=== PATIENT | female | born 1970 | race Caucasian/White ===

== ENCOUNTER 2016-12-30 20:03 | Emergency (ER) | payer OTHER ==
[~2016-12-30] VITALS: Ht 167.6 cm; Wt 109.0 kg
[~2016-12-30 20:03] MED LIST: ATOR20TA65 PO; CITA20TA11 PO; FOLI1TAB18 PO; GABA-500 PO; GEMF600T3 PO; HYDR-3740 PO; INSU100I SUBQ; INSU100I13 SUBQ; OMEP20CA11 PO; OXYB5TAB PO; SAXA5TAB PO; SILV400C TRANSDERM
[2016-12-30 20:11] VITALS: BP 120/86; PULSE 95; RESP 16; O2SAT 95
--- NOTE | 2016-12-30 21:11 | ED.REPORT ---
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 She states that the top of her finger is numb. The patient reports that she was cutting vegetables at home when she accidentally sliced her finger. She cleaned the wound with hydrogen peroxide and controlled the bleeding with gauze. Nursing Notes Stated Complaint: LAC TO RIGHT RING FINGER Chief Complaint: Extremity Trauma Nursing Notes Reviewed: Yes Allergies: Coded Allergies: codeine (Verified Allergy, Intermediate, GI upset, 12/30/16) Scheduled Atorvastatin Calcium (Atorvastatin Calcium) 20 Mg Tablet 20 MG PO HS Citalopram (Citalopram) 20 Mg Tablet 20 MG PO DAILY Folic Acid (Folic Acid) 1 Mg Tablet 1 MG PO MORNING Gabapentin (Gabapentin) 100 Mg Capsule 100 MG PO BID Gemfibrozil (Gemfibrozil) 600 Mg Tablet 600 MG PO BIDAC Insulin Aspart (NovoLOG U-100 Pen) 100 Unit/Ml Insuln.pen 1-8 UNITS SUBQ TIDWM Dosing per sliding scale Insulin Glargine (Lantus U100 Solostar Insulin Pen) 100 Unit/1 Ml Insuln.pen 60 UNIT SUBQ BID Omeprazole (Omeprazole) 20 Mg Capsule.dr 20 MG PO BID Oxybutynin Chloride ER (Oxybutynin Chloride ER) 5 Mg Tab.er.24 5 MG PO MORNING Saxagliptin (Onglyza) 5 Mg Tablet 5 MG PO DAILY Scheduled PRN Hydrocodone-Acetaminophen 10-325 mg (Hydrocodone-Acetaminophen 10-325 mg) 1 Each Tablet 1 TABLET PO Q4H PRN PRN For Pain Silver Sulfadiazine (Silver Sulfadiazine) 400 Gm Cream..g. 1 APPLIC TRANSDERM BID PRN PRN Wound on head General Time Seen by Provider: 21:20 Chief Complaint Finger injury right Hx Obtained From: Patient Arrived By: Walk-in Onset Occurred: Just prior to arrival Symptom Duration: Since onset Caused by: Knife wound Severity: Current: Moderate Associated with: Reports: Numbness Recent Healthcare: No recent doctor visit, No recent hospitalization Similar Sx Previous: No Past Medical History Past Medical History Dyslipidemia Sleep apnea Diabetes mellitus, Type II Central retinal vein occlusion Urge incontinence Renal insufficiency GERD Insomnia Hypertension Sarcoidosis Bipolar affective disorder Smoking History Former Smoker Social History Other Social History: Good social support Ambulatory Status Independent Review of Systems Musculoskeletal: Reports: Extremity pain (right ring finger) Neurologic: Reports: Numbness Complete sys rev & neg: except as marked. Physical Exam Initial Vital Signs Vital Signs (First) Date Time Temp Pulse Resp B/P Pulse Ox O2 Delivery O2 Flow Rate FiO2 12/30/16 20:11 36.2 95 16 120/86 95 Room Air Initial VS: Reviewed, Vital signs normal HAND: curved linear laceration of finger pad on the right ring finger deep into the subcutaneous but does not involve any underlying structures General/Constitutional: Awake, Alert, No acute distress Skin: Color NL, No rash, Warm, Dry Neurologic: Oriented X3, Speech NL, No motor deficits, No sensory deficits Head / Eyes: Normocephalic, PERRL, EOMI open wound covered with dressing on the top of skull Upper Extremity / MS: Atraumatic, Full range of motion Lower Extremity / Pelvis / MS: Atraumatic, Full range of motion Psychiatric: Affect NL, Mood NL Procedures Laceration Management Time: 22:09 Procedure Performed by: ED physician Consent / Setup / Site Prep: Consent from patient, Time-out performed, Hand hygiene observed, Stand sterile technique Wound Length: 2 cm Local Anesthesia: Bupivacaine 0.5%, Other (LET) Digit Involved: Ring finger right Wound Preparation: Betadine Debridement: Yes Irrigation: Copious Foreign Body Explore / Removal: Explored for foreign body Undermining / Margins: Wound margins revised (fat debridement), Flaps aligned Repair Skin: Nylon # Sutures - Skin: 6 Suture Technique: Simple Post-Procedure / Complications: Antibiotic oint applied, Dressing applied, No complications, Condition improved, Tolerated procedure well, Patient stable Re-Eval/Medical Decision Med Decision/Clinical Course Uncomplicated laceration of the tuft of her finger with a somewhat complex repair with flap alignment and some debridement of fatty tissue. Re-Evaluation/Progress : Time of Eval: 22:08 Re-Evaluation/Progress Note: Discussed plan for sutures and then discharge. The patient understands and agrees to the plan. All questions were addressed. Counseled Regarding: Diagnosis, Lab results, Need for follow-up, When/why to return to ED Discharge & Departure Primary Impression: Laceration Disposition: Home Discharge Condition All VS Reviewed: Yes Condition: Stable Patient Instructions: Care For Your Stitches (ED), Finger Laceration (ED) Additional Instructions: Keep it clean and dry. Okay to wash after 24 hours but do not soak it, for example no dishwashing, no hot tubbing, and no scuba diving. Follow-up if there are any signs of infection. Contact me at [phone] between the hours of 9 PM and 6 AM for the next few nights if you have any questions or concerns. Tylenol and/or ibuprofen as needed for pain. Sutures out in 10 days. Referrals: [facility] (PCP) Minor Attestation Portions of this note were transcribed by Serena Carpenter. I, Dr. Garcia personally performed the history, physical exam and medical decision-making; I reviewed and confirmed the accuracy of the information in the transcribed note. Signed by: Minor Jackson, 12/30/16 and 2130. copies to: [facility] Howard L MD Dec 30, 2016 21:11 Zunilda Carpenter Dec 30, 2016 21:22
[2016-12-30] MEDS ORDERED: Lidocaine-Epi-Tetracaine Solution 3 mL Syringe TOPICAL ONE (21:15)
[2016-12-30 22:50] VITALS: PULSE 89; RESP 18; O2SAT 95
[2017-01-12] MEDS ORDERED: LACT1CAP13 PO (11:09)
== END 2016-12-30 22:51 | disposition home or self-care (01) ==
LOC: SED 20:03
DX: S61.214A Laceration without foreign body of right ring finger without damage to nail, initial encounter (principal); W26.0XXA Contact with knife, initial encounter; Y93.G9 Activity, other involving cooking and grilling; Y92.009 Unspecified place in unspecified non-institutional (private) residence as the place of occurrence of the external cause; Y99.8 Other external cause status; I10 Essential (primary) hypertension; E11.9 Type 2 diabetes mellitus without complications; K21.9 Gastro-esophageal reflux disease without esophagitis; F31.9 Bipolar disorder, unspecified; E78.5 Hyperlipidemia, unspecified; Z79.4 Long term (current) use of insulin; Z87.891 Personal history of nicotine dependence; Z88.5 Allergy status to narcotic agent

== ENCOUNTER 2017-01-06 18:07 | Inpatient (IN) | payer OTHER, MEDICAID ==
[~2017-01-06] VITALS: Ht 167.6 cm; Wt 109.4 kg
[2017-01-06 18:12] VITALS: BP 116/85; PULSE 112; RESP 21; O2SAT 96
[2017-01-06] MEDS ORDERED: 0.9% Sodium Chloride 1,000 ML IV ONE ×2 (18:31→20:10)
--- NOTE | 2017-01-06 18:31 | ED.REPORT ---
HPI-Abd Pain F 40 and Over Date of Service Jan 06, 2017 ED Provider: Kuldip Peraza DO Pt is a 46 year old female with a history of pancreatitis, DM and HTN who presents to the ED complaining of abdominal pain onset this morning. She c/o associated weakness, nausea, vomiting, and diarrhea. She reports that these are usual symptoms when she has pancreatitis. She denies drinking alcohol and high cholesterol. Nursing Notes Stated Complaint: POSS PANCREATITIS Chief Complaint: Female Abdominal Pain Nursing Notes Reviewed: Yes Allergies: Coded Allergies: codeine (Verified Allergy, Intermediate, GI upset, 01/06/17) Scheduled Aspirin (Aspirin) 81 Mg Tablet 81 MG PO QAM Atorvastatin Calcium (Atorvastatin Calcium) 20 Mg Tablet 20 MG PO HS Citalopram (Citalopram) 20 Mg Tablet 20 MG PO DAILY Folic Acid (Folic Acid) 1 Mg Tablet 1 MG PO MORNING Gabapentin (Gabapentin) 100 Mg Capsule 100 MG PO BID Gemfibrozil (Gemfibrozil) 600 Mg Tablet 600 MG PO BIDAC Insulin Glargine,Hum.rec.anlog (Toportia Solroshanar) 300 Unit/Ml (1.5 Ml) Insuln.pen 60 UNITS SUBQ BID Omeprazole (Omeprazole) 20 Mg Capsule.dr 20 MG PO DAILY Oxybutynin Chloride ER (Oxybutynin Chloride ER) 5 Mg Tab.er.24 5 MG PO MORNING Saxagliptin (Onglyza) 5 Mg Tablet 5 MG PO DAILY Scheduled PRN Hydrocodone-Acetaminophen 10-325 mg (Hydrocodone-Acetaminophen 10-325 mg) 1 Each Tablet 1 TABLET PO Q4H PRN PRN For Pain Silver Sulfadiazine (Silver Sulfadiazine) 400 Gm Cream..g. 1 APPLIC TRANSDERM BID PRN PRN Wound on head General Time Seen by MD: 18:31 Chief Complaint Abdominal pain Hx Obtained From: Patient Arrived By: Walk-in Sudden in Onset?: No Onset Occurred: 5 - 8 hours ago Symptom Duration: Since onset Location: : Diffuse Quality: Painful Severity: Current: Moderate Severity: Maximum: Moderate Recent Healthcare: Recent doctor visit, Recent hospitalization Similar Sx Previous: Yes Past Medical History Past Medical History Dyslipidemia Sleep apnea Diabetes mellitus, Type II Central retinal vein occlusion Urge incontinence Renal insufficiency GERD Insomnia Hypertension Sarcoidosis Bipolar affective disorder Past Surgical History Reports: Appendectomy, Cholecystectomy Smoking History Former Smoker Social History Other Social History: Good social support Ambulatory Status Independent Review of Systems Constitutional: Reports: Weakness - generalized, Denies: Fever GI: Reports: Abdominal pain, Diarrhea, Nausea, Vomiting Complete sys rev & neg: except as marked. Physical Exam Vital Signs Vital Signs (First) Date Time Temp Pulse Resp B/P Pulse Ox O2 Delivery O2 Flow Rate FiO2 01/06/17 18:12 36.5 112 21 116/85 96 Room Air Initial VS: Reviewed Head / Eyes: Atraumatic, Normocephalic, PERRL ENT: Mucous membranes moist, Conjunctiva normal, No scleral icterus Neck: Supple, Non-tender, Full range of motion Extremities: Vascular intact, Neuro intact Skin: Warm, Dry, No cyanosis Neurologic: Alert, Oriented, Nonfocal Psychiatric: Mood/affect normal, Behavior normal General/Constitutional: Awake, Alert Distress / Hydration: Positive: Distress mild Respiratory / Chest: Atraumatic, Breath sounds NL, Breath sounds = bilat, No respiratory distress Cardiovascular: Heart rate NL, Regular rhythm, Heart sounds NL Abdomen: Atraumatic, Soft, Non-tender Back: Atraumatic, Full range of motion Wrist / Hand: Neurologic intact, Vascular intact Her wound on her fingers look like it is getting infected. Interpretation & Diagnostics Lab Results Interpretation Result Diagram: 01/06/17 1900 01/06/17 190 Test 01/06/17 19:00 White Blood Count 8.1th/mm3 (3.8-10.1) Red Blood Count 5.01mil/mm3 (3.90-5.20) Hemoglobin 13.4g/dL (12.0-15.6) Hematocrit 40.7% (35.0-46.0) Mean Corpuscular Volume 81.2fL (81-100) Mean Corpuscular Hemoglobin 26.7pg (27.0-35.0) Mean Corpuscular Hemoglobin Concent 32.9% (32.0-37.0) Red Cell Distribution Width 13.9% (12.3-15.4) Platelet Count 266bil/L (150-400) Neutrophils (%) (Auto) 77.4% (40-74) Lymphocytes (%) (Auto) 12.7% (14-46) Monocytes (%) (Auto) 6.5% (4-12) Eosinophils (%) (Auto) 2.8% (0-5) Basophils (%) (Auto) 0.2% (0-3) Sodium Level 137mEq/L (134-144) Potassium Level 4.3mEq/L (3.5-5.2) Chloride Level 98mEq/L (97-108) Carbon Dioxide Level 19mmol/L (18-29) Blood Urea Nitrogen 53mg/dL (6-24) Creatinine 2.34mg/dL (0.57-1.00) Estimat Glomerular Filtration Rate 32mL/min (>59) Glucose Level 176mg/dL (60-99) Lactic Acid Level 1.3mmol/L (0.4-2.0) Calcium Level 11.4mg/dL (8.5-10.1) Magnesium Level 1.8mg/dL (1.6-2.6) Total Bilirubin 0.3mg/dL (0.0-1.2) Aspartate Amino Transf (AST/SGOT) 18U/L (0-50) Alanine Aminotransferase (ALT/SGPT) 11U/L (0-32) Alkaline Phosphatase 169U/L (25-150) Total Protein 8.7g/dL (6.4-8.4) Albumin 3.8g/dL (3.4-5.0) Lipase 1007U/L (13-60) General Lab Results Interp 1: Labs reviewed, CMP normal except (elevated BUN/ creatinine and glucose), CBC normal ECG Interpretation ECG Interpretation: Sinus rhythm with a rate of 93. RBBB and LAFB. Unchanged from prior on 06/14/16. Time: 18:48 Interpreted by: ED physician Re-Eval/Medical Decision Med Decision/Clinical Course This is an acutely ill-appearing 46-year-old female who was pancreatitis, gastroenteritis, acute renal insufficiency secondary to dehydration and a finger infection. She is going be treated with fluids. Pain control. IV Unasyn for the finger infection because it was a bite. When she is tolerating oral I recommend Augmentin. Case discussed with our hospitalist was accepted her for admission. Source of Hx: Old records Re-Evaluation/Progress : Time of Eval: 20:07 )( Re-Eval Abdomen: Soft Re-Evaluation/Progress Note: Pt rechecked. Informed pt of plan for admission. Pt understands and agrees with plan for admission. All questions addressed. 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: Will see patient, Agrees with eval, Agrees with plan, Accepts admit Counseled Regarding: Diagnosis, Lab results, Need for admission Discharge & Departure Primary Impression: Acute pancreatitis Pancreatitis type: unspecified pancreatitis type Acute pancreatitis complication: unspecified Qualified Code: K85.90 - Acute pancreatitis without necrosis or infection, unspecified Additional Impressions: Acute renal insufficiency Dehydration Nausea vomiting and diarrhea Animal bite of right hand with infection Encounter type: initial encounter Qualified Code: S61.451A - Open bite of right hand, initial encounter Disposition: ADMITTED TO HOSPITAL Discharge Condition All VS Reviewed: Yes Condition: Stable Patient Instructions: Pancreatitis (ED) Referrals: [facility] (PCP) Maria Libfrancis Attestation Portions of this note were transcribed by Ruba Hill. I, Dr. Peraza personally performed the history, physical exam and medical decision-making; I reviewed and confirmed the accuracy of the information in the transcribed note. Signed by: Minor Avery, 01/06/17 and 19:50. copies to: [facility] Todd P DO Jan 06, 2017 18:31 Ruba Buckner Jan 06, 2017 18:50
[2017-01-06] MEDS ORDERED: 0.9% Sodium Chloride 1,000 ML IV SCH (18:45)
[2017-01-06] MEDS ORDERED: Ondansetron 2 mg/mL 2 mL Inj IVPUSH PRN ×2 (18:50→21:05)
[2017-01-06 19:12] LABS: BASOPHILS % (AUTO) 0.2 % (0-3); EOSINOPHILS % (AUTO) 2.8 % (0-5); MONOCYTES % (AUTO) 6.5 % (4-12); Mean Corpuscular Hemoglobin 26.7 pg (27.0-35.0); Mean Corpuscular Volume 81.2 fL (81-100); NEUTROPHILS % (AUTO) 77.4 % (40-74); Platelet Count 266 bil/L (150-400)
[2017-01-06 19:36] LABS: Magnesium 1.8 mg/dL (1.6-2.6)
[2017-01-06] MEDS: HYDROmorphone 0.5 mg/0.5 mL iSecure Syringe IVPUSH PRN ×2 (19:40→20:44)
[2017-01-06] MEDS ORDERED: Ampicillin-Sulbactam Inj 3,000 MG in 0.9% Sodium Chloride 100 ML IV ONE (20:10)
[2017-01-06] MEDS ORDERED: OMEP20CA11 PO (20:51)
[2017-01-06] MEDS ORDERED: ASPI-973 PO (20:51)
[2017-01-06] MEDS ORDERED: INSU300I SUBQ (20:51)
[2017-01-06 20:52] VITALS: BP 110/57; PULSE 108; RESP 19; O2SAT 96
[2017-01-06] MEDS ORDERED: Alum-Mag Hydrox-Simeth 30 mL Suspension PO PRN (21:05)
[2017-01-06 21:37] VITALS: BP 146/91; PULSE 83; RESP 18; O2SAT 95
[2017-01-06 22:40] LABS: APPEARANCE,URINE HAZY (CLEAR,HAZY); COLOR,URINE STRAW (YELLOW); OCCULT BLOOD,URINE SMALL (NEGATIVE); UROBILINOGEN,URINE NORMAL (NORMAL)
[2017-01-06] MEDS: Pantoprazole 4 mg/mL 10 mL Inj IVPUSH SCH (23:24)
[2017-01-07] VITALS (7 sets, daily range): BP systolic 112–145; BP diastolic 73–83; PULSE 82–107; RESP 16–18; O2SAT 91–97
--- NOTE | 2017-01-07 00:30 | PCM.HPMED ---
Subjective Date of Service Jan 07, 2017 Primary Provider: Admitting Physician: Hardik Mejia MD Primary Care Physician: [facility] Attending Physician: Hardik Mejia MD Admit Status: From the Emergency Department Chief Complaint: Abdominal pain with nausea and vomiting and diarrhea History of Present Illness: Patient is a 46-year-old female with past medical history remarkable for recurrent pancreatitis post cholecystectomy and without history of alcohol use, sarcoidosis, and MRSA scalp infection and necrotizing fasciitis abdominal infection who presents with 1 day of abdominal pain with nausea vomiting and diarrhea. The patient states that today when she woke up she was feeling fairly poor overall including some abdominal discomfort which progressed throughout the day. The patient describes initial onset of back pain described as lower right sided which feels as though somebody is stabbing her and eventually began radiating into her abdomen on the upper right side which feels as though someone is grabbing her pancreas. The patient states she began vomiting in the afternoon a yellow throat without blood or coffee ground emesis. The patient also developed diarrhea which is described as floating on water and a normal brown color. The patient denies any recent antibiotic use before today. The patient states that her current abdominal complaints remind her of previous episodes of pancreatitis. The patient had her gallbladder removed in 2013 believing that may be the cause of her pancreatitis however she has had several bouts since that time. The patient has sarcoidosis and avoids increased calcium ingestion. The patient states that she is unaware of a cause for her recurrent pancreatitis including being unaware it has ever been blamed on elevated calcium, elevated triglycerides, medications, or autoimmune. The patient denies starting any new medications recently. Review of Systems: A comprehensive review of systems was completed and all are negative except for as included in the history of present illness. Allergies Coded Allergies: codeine (Verified Allergy, Intermediate, GI upset, 01/06/17) Home Medications Aspirin 81 MG PO QAM Atorvastatin [id number] MG PO HS [id number] MG PO DAILY Folic Acid 1 MG PO MORNING Gabapentin 100 MG PO BID Gemfibrozil 600 MG PO BIDAC Insulin Glargine,Hum.rec.anlog 60 UNITS SUBQ BID Omeprazole 20 MG PO DAILY Oxybutynin Chloride ER 5 MG PO MORNING Saxagliptin 5 MG PO DAILY Hydrocodone-Acetaminophen 10-325 mg 1 TABLET PO Q4H PRN For Pain Silver Sulfadiazine 1 APPLIC TRANSDERM BID PRN Wound on head Lantus 60 units twice a day NovoLog sliding scale Atorvastatin 20 mg daily Zolpidem 10 mg at bedtime Hydrocodone/acetaminophen 10/325 tablets prn Gemfibrozil 600 mg tablets citalopram 20 mg daily gabapentin 100mg unknown frequency omeperazole 20 mg by mouth daily Ditropan 5mg XR daily glimepiride 2mg daily folic acid 1mg by mouth daily saxagliptin 5mg po daily PMH Dyslipidemia Sleep apnea Diabetes mellitus, Type II Central retinal vein occlusion in 2013 without complication Urge incontinence Renal insufficiency 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 GERD Insomnia Hypertension Sarcoidosis Recurrent pancreatitis post cholecystectomy without history of alcohol use Bipolar affective disorder History of MRSA History of necrotizing fasciitis Surgical History Cholecystectomy in 2013 Appendectomy Tubal ligation Debridement of skalp sarcoid Require surgical intervention for necrotizing fasciitis Family History mother alive at 66 years old and has HTN, diabetes and heart disease the patient has not spoken to her in 20 years and does not know her current health The patient's father from leukemia in his 70s The patient is an only child Social History 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 Hx Alcohol Use: No Hx Substance Use: No Hx Tobacco Use: Yes Smoking Status: Former Smoker Living Arrangement: with Family Exam Vital Signs Vital Sign - Last Date Time Temp Pulse Resp B/P Pulse Ox O2 Delivery O2 Flow Rate FiO2 01/06/17 21:37 37.1 83 18 146/91 95 Room Air Intake and Output 01/06/17 01/06/17 01/07/17 Cumulative From/Thru 15:00 23:00 07:00 01/06/17 18:12 - 01/06/17 21:37 Intake Total 3000 ml 3000 ml Balance 3000 ml 3000 ml Intake IV Total 3000 ml 3000 ml Exam Gen.: Middle-aged morbidly obese female lying in bed currently in no acute distress, alert and cooperative Eyes: Pupils equal round and reactive to light, extraocular motion intact, anicteric sclera, noninjected conjunctiva HENT: Patient has a scalp wound without fluctuance or serosanguineous drainage at this time, moist mucous membranes without central cyanosis, oropharynx clear without cobblestoning mucous Neck: Supple, without tracheal deviation, no JVD noted Cardiovascular: Regular rate and rhythm, without murmurs rubs or gallops Lungs: Clear to auscultation bilaterally without wheezing rales or rhonchi Abdomen: Tenderness to palpation noted in right upper quadrant and epigastrium, nondistended, hypoactive bowel sounds, tympanic to percussion without Adhikari Sena sign on flanks Extremities: Without cyanosis, edema, clubbing, pulses intact bilaterally at radial and dorsalis pedis, patient has a 2 cm laceration with purulent wound effusion on her right ring finger which is neurovascularly intact : No Rico in place Neuro: Nonfocal, patient is able to move all extremities spontaneously Psych: Normal mood and affect Lab and Diagnostics Result Diagram: 01/06/17189901/06/171899 Assessment & Plan Patient is a 46-year-old female with past medical history remarkable for recurrent pancreatitis post cholecystectomy and without history of alcohol use, sarcoidosis, and MRSA scalp infection and necrotizing fasciitis abdominal infection who presents with 1 day of abdominal pain with nausea vomiting and diarrhea. # Acute pancreatitis - The patient has a lipase of 1007 - Differential diagnosis for recurrent pancreatitis includes biliary tract stones even without a gallbladder, hypercalcemia, hypertriglyceridemia, undocumented alcohol use, trauma, scorpion stings, autoimmune IGG4 related as well as numerous drugs - The patient denies any trauma or scorpion sting, alcohol use, no new drugs, the patient's triglycerides are elevated but only to 282 making this an unlikely cause, and the patient had her gallbladder removed in 2013 making stone less likely - The patient has sarcoidosis causing chronic elevated calcium currently at 11.4 and likely the cause of recurrent pancreatitis at this time - Day team may consider imaging studies as 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, the patient also has an elevated alkaline phosphatase at 169 making biliary stones unlikely but still possible - Patient is made nothing by mouth and will have her diet advanced as tolerated - Fentanyl IV available for pain coverage and the patient appeared comfortable at assessment - Pantoprazole IV given patient is nothing by mouth - Ondansetron IV when necessary as patient is nothing by mouth - Initial BISAP score of 2 gives a fairly favorable prognosis, and given infection in hand and possible UTI consider this course was a possible 1 as vital signs may be affected by concomitant unrelated infection # Infected dog bite on left upper extremity fourth digit - Finger has a definite purulent effusion one week post dog bite - Patient had minor I&D performed in emergency department - Patient started on Unasyn IV given patient is nothing by mouth - Wound care consult ordered - Patient will likely need antibiotic coverage for 7-14 days # Hypercalcemia - Reportedly secondary to chronic sarcoidosis - PTH and vitamin D ordered - Day team may consider initiation of Calcitonin, bisphosphonates, or loop diuretics to decrease serum calcium depending on results of PTH/Vit D # Likely urinary tract infection - Patient denied symptoms of urinary tract infection - UA indicates patient has elevated white blood cell count, moderate bacteria, leukocyte esterase and nitrites - Unasyn for concomitant dog bite infection will cover any UTI # Acute kidney injury - Creatinine of 2.3 for significantly elevated from baseline in the low ones - Likely due to prerenal azotemia given nausea and vomiting as well BUN to creatinine ratio greater than 20 - Patient was given significant fluid resuscitation in the emergency department with 3 L normal saline - Repeat BMP - Monitor # Diabetes mellitus type II Insulin-dependent - Hemoglobin A1c ordered - Patient is currently nothing by mouth given acute pancreatitis - Correction scale lispro until patient's diet is advanced # Obesity - Patient education prior to discharge DVT prophylaxis: Heparin 5000 units 3 times a day GI prophylaxis: Pantoprazole IV twice a day CODE STATUS full Patient is admitted to inpatient status given presenting symptoms, likely diagnosis, possible complications, and required treatments expected length of stay is greater than 2 midnights. Pain Evaluation: Adequate Pain Control GI Prophylaxis: Proton Pump Inhibitor VTE Prophylaxis Indicated: Meets Criteria for Anticoag Therapy VTE Prophylaxis: Sub-Q Heparin (Unfractionated) Resuscitation Status: CPR: Attempt Resuscitation Attending Statement The patient was seen and examined together with Dr. Quinteros on 01/06 and I agree with the history, exam and plan as outlined in the note above. Edgar Chowdary DO Jan 07, 2017 00:30 Hardik Mejia MD Jan 07, 2017 05:54
[2017-01-07] MEDS: fentaNYL-PF 50 mCg/mL 2 mL Inj IV PRN ×6 (01:26→23:30)
[2017-01-07] MEDS: Ondansetron 2 mg/mL 2 mL Inj IVPUSH PRN ×6 (01:26→22:08)
--- NOTE | 2017-01-07 03:24 | NUR ---
ADMIT NOTE Pt arrived to [id number] approx 2130. Pt alert and oriented. VS obtained. Pt placed on remote telemetry, patient monitor notified. Pt had rec'd 3 liters NS IVF in ER, no further IVF orders at this time per admitting resident, okay to have TKO IVF d/t pts difficult to start IVs. Pt has not had any diarrhea upon arrival to floor, orders from ER for stool sample. Pt placed on contact enteric to R/O C.diff. Pt also has hx of MRSA, on contact precautions. Pt has wound on anterior head and dog bite to right ring finger. Admitting resident states that he will order wound consult. Pt comfortable, no pain at time of arrival to [facility]. Continue to monitor. Call light in reach. Daughter in room overnight. Intentional rounding.
[2017-01-07] MEDS ORDERED: Glucose 40% Oral Gel 15 Gm Tube PO PRN (04:25)
[2017-01-07] MEDS ORDERED: Dextrose 10% 250 ML IV PRN (04:35)
[2017-01-07] MEDS: Ampicillin-Sulbactam Inj 1,500 MG in 0.9% Sodium Chloride 50 ML IV SCH ×3 (05:50→18:30)
--- NOTE | 2017-01-07 06:09 | NUR ---
OUTPUT Pt has been voiding good amts. Pt has had episodes of green, bile emesis, approx total 150cc. No BM since arrival to floor. Continue to monitor.
[2017-01-07 06:18] LABS: BASOPHILS % (AUTO) 0.1 % (0-3); EOSINOPHILS % (AUTO) 2.1 % (0-5); MONOCYTES % (AUTO) 9.4 % (4-12); Mean Corpuscular Hemoglobin 26.9 pg (27.0-35.0); Mean Corpuscular Volume 82.6 fL (81-100); NEUTROPHILS % (AUTO) 73.7 % (40-74); Platelet Count 256 bil/L (150-400)
[2017-01-07] MEDS: Insulin LISPRO 300 Unit/3 mL Inj SUBQ SCH ×4 (08:00→22:00)
[2017-01-07] MEDS: Pantoprazole 4 mg/mL 10 mL Inj IVPUSH SCH ×2 (08:30→16:42)
--- NOTE | 2017-01-07 09:00 | NUR ---
head wound pt refuse to left this RN assess head wound and stated that she did not want tell this RN how it occurred.
--- NOTE | 2017-01-07 09:14 | PCM.PNMED ---
Subjective Date of Service Jan 07, 2017 Subjective Pt feeling a little bit better this morning. still nauseated, denies appetite but has not vomting this morning No fever or chills. Still feeling weak. Exam Vital Signs Vital Sign - Last Date Time Temp Pulse Resp B/P Pulse Ox O2 Delivery O2 Flow Rate FiO2 01/07/17 05:55 82 01/07/17 05:40 36.7 16 145/76 97 Room Air Intake and Output 01/06/17 01/06/17 01/07/17 Cumulative From/Thru 15:00 23:00 07:00 01/06/17 18:12 - 01/07/17 05:53 Intake Total 3000 ml 161 ml 3161 ml Output Total 150 ml 150 ml Balance 3000 ml 11 ml 3011 ml Intake IV Total 3000 ml 161 ml 3161 ml Output Urine Total 100 ml 100 ml Emesis 50 ml 50 ml # Bowel Movements 0 0 General: Alert, Oriented X3, Cooperative, Mild Distress Eyes: PERRLA Mouth: Mucous Membranes Dry Cardiovascular: Regular Rate/Rhythm Abdomen: Non-tender, Non-distended, Other (Obese) Extremities: No cyanosis/clubbing/edma bilat Skin: Other (INfectioned laceration of finger secondary to dog bite. Erythematous distal to DIP, without streaking. (+)bandage on head, pt declines evalaution, states it is chronic. ) Neurological: Grossly Neurologically Intact IVs and Medications Medications Reviewed: Medications were reviewed in detail Lab and Diagnostics Result Diagram: 01/07/17 0545 01/07/17 0545 Assessment & Plan Patient is a 46-year-old female with past medical history remarkable for recurrent pancreatitis post cholecystectomy and without history of alcohol use, sarcoidosis, and MRSA scalp infection and necrotizing fasciitis abdominal infection who presents with 1 day of abdominal pain with nausea vomiting and diarrhea. # Acute pancreatitis - The patient has a lipase of 1007 - Differential diagnosis for recurrent pancreatitis includes biliary tract stones even without a gallbladder, hypercalcemia, hypertriglyceridemia, undocumented alcohol use, trauma, scorpion stings, autoimmune IGG4 related as well as numerous drugs - The patient denies any trauma or scorpion sting, alcohol use, no new drugs, the patient's triglycerides are elevated but only to 282 making this an unlikely cause, and the patient had her gallbladder removed in 2013 making stone less likely - The patient has sarcoidosis causing chronic elevated calcium currently at 11.4 and likely the cause of recurrent pancreatitis at this time - Day team may consider imaging studies as 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 - Patient was made nothing by mouth and will have her diet advanced as tolerated , now ordering clears but pt will only eat if able. - Fentanyl IV available for pain coverage and the patient appeared comfortable at assessment - Pantoprazole IV given patient is nothing by mouth - Ondansetron IV when necessary as patient is nothing by mouth - Continue to advance diet as tolerated. # Infected dog bite on left upper extremity fourth digit - Finger has a definite purulent effusion one week post dog bite - Patient had minor I&D performed in emergency department - Patient started on Unasyn IV given patient is nothing by mouth - Wound care consult ordered - Patient will likely need antibiotic coverage for 7-14 days, plan to transition to oral antibiotic when tolerating. # Hypercalcemia - Reportedly secondary to chronic sarcoidosis - PTH and vitamin D ordered - Day team may consider initiation of Calcitonin, bisphosphonates, or loop diuretics to decrease serum calcium depending on results of PTH/Vit D # Likely urinary tract infection - Patient denied symptoms of urinary tract infection - UA indicates patient has elevated white blood cell count, moderate bacteria, leukocyte esterase and nitrites - Unasyn for concomitant dog bite infection will cover any UTI # Acute kidney injury - Creatinine of 2.3 for significantly elevated from baseline in the low ones - Likely due to prerenal azotemia given nausea and vomiting as well BUN to creatinine ratio greater than 20 - Patient was given significant fluid resuscitation in the emergency department with 3 L normal saline - Repeat BMP - Monitor # Diabetes mellitus type II Insulin-dependent - Hemoglobin A1c ordered - Patient is currently nothing by mouth given acute pancreatitis - Correction scale lispro until patient's diet is advanced # Obesity - Patient education prior to discharge Patient is admitted to inpatient status given presenting symptoms, likely diagnosis, possible complications, and required treatments expected length of stay is greater than 2 midnights. Pain Evaluation: Adequate Pain Control GI Prophylaxis: Proton Pump Inhibitor VTE Prophylaxis: Sub-Q Heparin (Unfractionated) Resuscitation Status: CPR: Attempt Resuscitation Time spent 25 minutes Esau Elmore DO Jan 07, 2017 09:14
[2017-01-07] MEDS: 0.9% Sodium Chloride 1,000 ML IV SCH ×2 (12:08→18:33)
--- NOTE | 2017-01-07 12:28 | NUR ---
Social Work: Screening D: EMR reviewed. Pt is a 46 y/o female admitted for acute pancreatitis and renal failure per H&P. Per MD in AM multi-disciplinary rounds, pt is moving from IVABX to POABX. Pt is also being seen by wound care for a dog bite. Pt's insurance is [employer] and PCP is [facility]. Pt's NOK is [facility] Dwayne Omar ([phone]). Per MD, pt is likely to discharge tomorrow and doesn't anticipate any SW needs at this time. SW does not anticipate any discharge needs at this time but will continue to follow if needs arise. A: Per MD, pt does not have any anticipated SW discharge needs at this time. P: Pt likely to discharge home via POV tomorrow. MANJU Doe
--- NOTE | 2017-01-07 14:19 | NUR ---
nausea/vomiting/abd pain Pt reported nausea multiple times during shift and vomited X3 equaling 250ml of green bile-like emisis. Administered Zofran 4mg x2 and 8mg X2 which pt stated relieved nausea for a few hours. Pt reported 9/10 sharp abd pain that was relived to a 5/10 by 25mcg of fentanyl q3h
--- NOTE | 2017-01-07 15:57 | NUR ---
Wound Note 46 yo female reports dog bite approx 1 week ago at her right 4th finger. Assessment reveals an avulsion type laceration on the volar surface of the finger measuring 1.5 cm in length x 3.5 cm in width and a depth of 0.6 cms, there is necrotic tissue at the radial border of the wound otherwise wound bed is fibrinous yellow slough, minimal serous drainage, erythema is limited to the tip of the finger and the distal finger is swollen. Patient has active flexion of the ring finger and with isolation flexion of distal phalanx is normal. Patient has gross sensation at the finger but I suspect diabetic neuropathy is at play. Wound is cleaned with saline and hydrogel was placed on wound bed to encourage autolytic debridement covered with a mepilex foam dressing. Patient also has a dressing on the top of her head but refuses to allow me to see it and refuses to discuss the etiology with me either. Recommend plastic surgery be consulted regarding finger wound.
[2017-01-07] MEDS ORDERED: Promethazine 25 mg/mL Inj IM PRN (18:55)
[2017-01-08] MEDS: Ampicillin-Sulbactam Inj 1,500 MG in 0.9% Sodium Chloride 50 ML IV SCH ×4 (00:44→18:43)
[2017-01-08 00:54] VITALS: BP 159/103; PULSE 107; RESP 20; O2SAT 95
[2017-01-08 04:45] VITALS: BP 140/92; PULSE 97; RESP 20; O2SAT 93
[2017-01-08] MEDS: 0.9% Sodium Chloride 1,000 ML IV SCH ×3 (05:35→18:45)
--- NOTE | 2017-01-08 06:06 | NUR ---
Unable to sleep Pt awake for most of night, resting on pull out couch. Pt requesting sleeping pill, paged. Medicated pt with 5 mg melatonin per MD orders. Pt resting in bed after medication admin. Call light within reach, frequent rounding.
[2017-01-08 06:30] LABS: BASOPHILS % (AUTO) 0.2 % (0-3); EOSINOPHILS % (AUTO) 1.2 % (0-5); MONOCYTES % (AUTO) 7.6 % (4-12); Mean Corpuscular Hemoglobin 27.2 pg (27.0-35.0); Mean Corpuscular Volume 82.3 fL (81-100); NEUTROPHILS % (AUTO) 73.8 % (40-74); Platelet Count 272 bil/L (150-400)
[2017-01-08] MEDS: Insulin LISPRO 300 Unit/3 mL Inj SUBQ SCH ×4 (08:00→21:32)
--- NOTE | 2017-01-08 08:15 | NUR ---
Nausea/retching Pt is complaining of increased nausea, retching with no emesis. Pt reports Zofran has not decreased the nausea as well Phenergan. notified, this RN requesting change from IM to IV for pt comfort. Pharmacy contacted for medication delivery. Will continue to monitor. Addendum: 01/08/17 at 1108 by ALICJA ARIZA RN Pt resting quietly, nausea decreased, no signs of retching at this time. Family at bedside resting with pt. Call light in reach, will continue to monitor.
[2017-01-08] MEDS: Pantoprazole 4 mg/mL 10 mL Inj IVPUSH SCH ×2 (08:19→16:57)
[2017-01-08] MEDS ORDERED: Promethazine 25 mg/mL Inj IV PRN (08:50)
[2017-01-08] MEDS: Promethazine Inj 25 MG in 0.9% Sodium Chloride 50 ML IV PRN (09:38)
[2017-01-08 10:02] VITALS: BP 148/99; PULSE 98; RESP 20; O2SAT 97
[2017-01-08 12:59] VITALS: BP 134/84; PULSE 88; RESP 20; O2SAT 95
[2017-01-08] MEDS: fentaNYL-PF 50 mCg/mL 2 mL Inj IV PRN ×3 (13:02→21:37)
--- NOTE | 2017-01-08 14:56 | PCM.PNMED ---
Subjective Date of Service Jan 08, 2017 Subjective Patient continues to be severely nauseated requiring multiple when necessary's control vomiting. Tolerating little by mouth. Experiencing significant abdominal upset. No acute changes over past 24 hours. Minimal pain of finger described. Exam Vital Signs Vital Sign - Last Date Time Temp Pulse Resp B/P Pulse Ox O2 Delivery O2 Flow Rate FiO2 01/08/17 12:59 36.8 88 20 134/84 95 Room Air Intake and Output 01/07/17 01/07/17 01/08/17 Cumulative From/Thru 15:00 23:00 07:00 01/06/17 18:12 - 01/08/17 06:01 Intake Total 1429 ml 1152 ml 5742 ml Output Total 1500 ml 1550 ml 5 ml 3205 ml Balance -1500 ml -121 ml 1147 ml 2537 ml Intake Oral 592 ml 0 ml 592 ml IV Total 837 ml 1152 ml 5150 ml Output Urine Total 1500 ml 1300 ml 5 ml 2905 ml Emesis 250 ml 300 ml # Bowel Movements 0 Exam General: Alert, Oriented X3, Cooperative, significant distress Eyes: PERRLA Mouth: Mucous Membranes Dry Cardiovascular: Regular Rate/Rhythm Abdomen: Non-tender, Non-distended, Obese Extremities: No cyanosis/clubbing/edema bilat Skin: Infectioned laceration of finger secondary to dog bite. Erythematous distal to DIP, without streaking. (+)bandage on head, pt declines evaluation, states it is chronic. Neurological: Grossly Neurologically Intact IVs and Medications Medications Reviewed: Medications were reviewed in detail Lab and Diagnostics Result Diagram: 01/08/17 0535 01/08/17 0535 Assessment & Plan Patient is a 46-year-old female with past medical history remarkable for recurrent pancreatitis post cholecystectomy and without history of alcohol use, sarcoidosis, and MRSA scalp infection and necrotizing fasciitis abdominal infection who presents with 1 day of abdominal pain with nausea vomiting and diarrhea. # Acute pancreatitis - The patient has a lipase of 1007 - Differential diagnosis for recurrent pancreatitis includes biliary tract stones even without a gallbladder, hypercalcemia, hypertriglyceridemia, undocumented alcohol use, trauma, scorpion stings, autoimmune IGG4 related as well as numerous drugs - The patient denies any trauma or scorpion sting, alcohol use, no new drugs, the patient's triglycerides are elevated but only to 282 making this an unlikely cause, and the patient had her gallbladder removed in 2013 making stone less likely - Patient was made nothing by mouth and will have her diet advanced as tolerated , now ordering clears but pt will only eat if able. - Fentanyl IV available for pain coverage and additional when necessary medications - Pantoprazole IV given patient is having difficult time tolerating by mouth. - Ondansetron IV, with Phenergan added given refractory nausea and vomiting - Continue to advance diet as tolerated. # Infected dog bite on left upper extremity fourth digit - Finger has a definite purulent effusion one week post dog bite - Patient had minor I&D performed in emergency department - Patient started on Unasyn IV , may consider narrowing spectrum as patient medically stabilizes, and transition to oral antibiotics 1-2 days. - Wound care consult ordered - Patient will likely need antibiotic coverage for 7-14 days, plan to transition to oral antibiotic when tolerating. # Hypercalcemia - Reportedly secondary to chronic sarcoidosis - PTH and vitamin D ordered; Low vit D noted - Start Vit D supplement, 4000U/daily when able to take PO. - Consider FU level in ~1 week to monitor progress. - Continue to trend calcium levels, now normalized.. # Likely urinary tract infection - Patient denied symptoms of urinary tract infection - UA indicates patient has elevated white blood cell count, moderate bacteria, leukocyte esterase and nitrites - Unasyn for concomitant dog bite infection will cover any UTI # Acute kidney injury - Creatinine of 2.3 for significantly elevated from baseline in the low ones, downward tredning with IVFs. - Likely due to prerenal azotemia given nausea and vomiting as well BUN to creatinine ratio greater than 20 - Patient was given significant fluid resuscitation in the emergency department with 3 L normal saline - Repeat BMP - Continue to Monitor # Diabetes mellitus type II Insulin-dependent - Hemoglobin A1c ordered, 8.5 supports poor control. - Patient is currently nothing by mouth given acute pancreatitis - Correction scale lispro until patient's diet is advanced, may consider long acting and basal agents at that time. # Obesity - Patient education prior to discharge Patient is admitted to inpatient status given presenting symptoms, likely diagnosis, possible complications, and required treatments expected length of stay is greater than 2 midnights. Pain Evaluation: Adequate Pain Control GI Prophylaxis: Proton Pump Inhibitor VTE Prophylaxis: Sub-Q Heparin (Unfractionated) Resuscitation Status: CPR: Attempt Resuscitation Time spent 30 minutes Esau Elmore DO Jan 08, 2017 14:56 Esau Elmore DO Jan 08, 2017 14:56
--- NOTE | 2017-01-08 16:00 | NUR ---
Wound Note Patient seen at bedside for wound care and dressing change at right ring finger, slightly less necrotic tissue in the wound, edges remain unapproximated. swelling and erythema seem less today at the ring finger tip, wound cleaned with saline and gauze, redressed with hydrogel and adhesive foam dressing, recommend nursing change dressing daily over the weekend, ws to recheck on Wednesday. Patient still adamantly refuses to let me visualize her scalp wound, bandage remains in place there. I see from record that plastic surgery has not been consulted on for this finger wound, it remains my recommendation.
[2017-01-08 17:57] VITALS: BP 139/86; PULSE 92; RESP 20; O2SAT 96
--- NOTE | 2017-01-08 18:49 | NUR ---
PO intake Pt was able to tolerate 120 mls of apple juice at dinner with no increased nausea or vomiting. Pt continues to reports slight abd discomfort however feels is at a tolerable level with 50 mcg of Fentanyl IV PRN. Pt encouraged to continue to advance diet as tolerated and contact staff for needs. Call light in reach, will continue to monitor.
[2017-01-08 20:22] VITALS: BP 152/96; PULSE 91; RESP 20; O2SAT 97
[2017-01-09 00:27] VITALS: BP 138/74; PULSE 100; RESP 20; O2SAT 96
[2017-01-09] MEDS: Ampicillin-Sulbactam Inj 1,500 MG in 0.9% Sodium Chloride 50 ML IV SCH ×4 (02:03→18:16)
[2017-01-09] MEDS: fentaNYL-PF 50 mCg/mL 2 mL Inj IV PRN ×6 (02:24→23:10)
[2017-01-09] MEDS: Promethazine Inj 25 MG in 0.9% Sodium Chloride 50 ML IV PRN (04:46)
[2017-01-09] MEDS: 0.9% Sodium Chloride 1,000 ML IV SCH ×2 (04:50→16:38)
[2017-01-09 05:11] LABS: BASOPHILS % (AUTO) 0.3 % (0-3); EOSINOPHILS % (AUTO) 2.5 % (0-5); MONOCYTES % (AUTO) 12.5 % (4-12); Mean Corpuscular Hemoglobin 26.8 pg (27.0-35.0); Mean Corpuscular Volume 79.4 fL (81-100); NEUTROPHILS % (AUTO) 62.8 % (40-74); Platelet Count 285 bil/L (150-400)
[2017-01-09 05:46] VITALS: BP 132/82; PULSE 90; RESP 18; O2SAT 95
[2017-01-09] MEDS ORDERED: KCl 40 mEq/D5W 500 mL 40 MEQ in IV Premix 1 EACH IV ONE (07:35)
[2017-01-09 08:57] VITALS: BP 140/86; PULSE 82; RESP 20; O2SAT 94
[2017-01-09] MEDS: Pantoprazole 40 mg ER24 Tablet PO SCH ×2 (09:28→16:37)
[2017-01-09] MEDS: Insulin LISPRO 300 Unit/3 mL Inj SUBQ SCH ×4 (09:39→22:11)
--- NOTE | 2017-01-09 11:51 | NUR ---
IV Potassium: Patient complaining of IV site hurting. IV Potassium infusing. Hot pack placed on IV site. Explained to patient that I can reduce rate of infusion, however it will take longer to infuse. Patient states she will wait to see if hot packs helps discomfort. On reassessment, patient states she would like IV potassium stopped now. States "I have low potassium every time I come to the hospital and they always give me a pill, never by IV." "Stop it now!". IV potassium stopped. notified of patient concerns @ approx 1150.
[2017-01-09] MEDS ORDERED: Potassium Chloride 20 mEq SR Tablet PO ONE (11:55)
--- NOTE | 2017-01-09 12:07 | PCM.PNMED ---
Subjective Date of Service Jan 09, 2017 Subjective She is seen today in follow-up for pancreatitis and the right flank pain. Her potassium overnight dropped to 3.3. CBC is normal and the BMP is otherwise normal. Blood sugar 219. I spoke with Dr. Moreno and we will proceed along the direction of his suggested workup. Exam Vital Signs Vital Sign - Last Date Time Temp Pulse Resp B/P Pulse Ox O2 Delivery O2 Flow Rate FiO2 01/09/17 08:57 36.3 82 20 140/86 94 Room Air Intake and Output 01/08/17 01/08/17 01/09/17 Cumulative From/Thru 15:00 23:00 07:00 01/06/17 18:12 - 01/09/17 06:36 Intake Total 400 ml 1465 ml 7607 ml Output Total 1850 ml 950 ml 6005 ml Balance -1450 ml 515 ml 1602 ml Intake Oral 400 ml 400 ml 1392 ml IV Total 1065 ml 6215 ml Output Urine Total 1850 ml 950 ml 5705 ml Emesis 300 ml # Bowel Movements 0 0 0 Exam Alert and oriented without apparent distress Heart is regular rate and rhythm without murmur lungs are clear to auscultation bilaterally Extremities have no ankle edema Neck exam is normal There is mild right flank tenderness. Abdomen is otherwise normal area and specifically there is no central abdominal tenderness or epigastric tenderness. IVs and Medications Medications Reviewed: Medications were reviewed in detail Lab and Diagnostics Result Diagram: 01/09/17 0440 01/09/17 0440 Assessment & Plan Patient is a 46-year-old female with past medical history remarkable for recurrent pancreatitis post cholecystectomy and without history of alcohol use, sarcoidosis, and MRSA scalp infection and necrotizing fasciitis abdominal infection who presented with 1 day of abdominal pain with nausea vomiting and diarrhea. # Acute pancreatitis - The patient had a lipase of 1007 on admission, which has subsequently dropped. - Differential diagnosis for recurrent pancreatitis includes biliary tract stones even without a gallbladder, hypercalcemia, hypertriglyceridemia, undocumented alcohol use, trauma, scorpion stings, autoimmune IGG4 related as well as numerous drugs - The patient denies any trauma or scorpion sting, alcohol use, no new drugs, the patient's triglycerides are elevated but only to 282 making this an unlikely cause, and the patient had her gallbladder removed in 2013 making stone less likely - Diet is being steadily advanced and she seems to be tolerating that. - Fentanyl IV available for pain coverage and additional when necessary medications - Pantoprazole IV given patient is having difficult time tolerating by mouth. - Ondansetron IV, with Phenergan added given refractory nausea and vomiting -The fact that her complaint today is only of right flank pain prompts a review of her potential pyelonephritis workup. The CT showed findings that were nonspecific for pyelonephritis but were nevertheless consistent with pyelonephritis. The urinalysis and urine culture were abnormal but there was no definitive single bacterial result on the urine culture. The white count has been normal and there has been no fever. She is on IV Unasyn.. The CT was quite definitive about the presence of pancreatitis. # Infected dog bite on left upper extremity fourth digit -Completing IV Unasyn treatment. - Patient will likely need antibiotic coverage for 7-14 days, plan to transition to oral antibiotic when tolerating. # Hypercalcemia - Reportedly secondary to chronic sarcoidosis - PTH and vitamin D ordered; Low vit D noted - Start Vit D supplement, 4000U/daily when able to take PO. - Consider FU level in ~1 week to monitor progress. - Continue to trend calcium levels, now normalized.. # Likely urinary tract infection/right pyelonephritis - Patient denied symptoms of urinary tract infection - UA indicates patient has elevated white blood cell count, moderate bacteria, leukocyte esterase and nitrites - Unasyn for concomitant dog bite infection will cover any UTI - Urine culture showing growth of more than 3 organisms # Acute kidney injury - Creatinine of 2.3 for significantly elevated from baseline in the low ones, now down to 1.57. - Likely due to prerenal azotemia given nausea and vomiting as well BUN to creatinine ratio greater than 20 - Patient was given significant fluid resuscitation in the emergency department with 3 L normal saline # Diabetes mellitus type II Insulin-dependent - Hemoglobin A1c ordered, 8.5 supports poor control. - Patient is currently resuming oral intake and insulin doses are being adjusted. - Correction scale lispro, may consider long acting and basal agents resumed soon. # Obesity - Patient education prior to discharge # Hypokalemia - Did not tolerate IV infusion. We will give additional oral potassium today. GI Prophylaxis: Proton Pump Inhibitor VTE Prophylaxis: Sub-Q Heparin (Unfractionated) Resuscitation Status: CPR: Attempt Resuscitation Oziel Dumont MD Jan 09, 2017 09:22
--- NOTE | 2017-01-09 13:29 | DRSVH ---
PROCEDURE: US RENAL SONOGRAM INDICATIONS: 46 year-old female with right flank pain. TECHNIQUE: Real-time scanning was performed of the kidneys and bladder, with image documentation. COMPARISON: [facility], CT, CT ABD PELVIS W CON, 06/14/2016, 10:48. FINDINGS: Kidneys: Kidneys are normal in size. Right kidney measures 9.8 cm long; left kidney measures 11 cm long. Right renal cortical thickness is 1.4 cm; left renal cortical thickness is 1.2 cm. Renal sherrell ical echotexture is normal. No hydronephrosis or nephrolithiasis. No suspicious solid mass lesions. Bladder: Pre-void bladder volume is 31 mL. Pre-void images demonstrate no intraluminal masses or st ones. On pre-void images, right and left ureteral jets are noted with color Doppler interrogation. Miscellaneous: No free pelvic fluid. IMPRESSION: No sonographic explanation for right flank pain. Dictated by: Alexandre Jean M.D. on 01/09/2017 at 13:24 Approved by: Alexandre Jean M.D. on 01/09/2017 at 13:27
--- NOTE | 2017-01-09 13:38 | NUR ---
NUTRITION ASSESSMENT: ASSESS:46 YO female admitted with acute on chronic pancreatitis, with right flank pain, infected dog bite on left upper fourth digit finger, hypercalcemia, likely uti / pyelonephritis, LEONID. Her lipase has subsequently dropped. Differential diagnosis for recurrent pancreatitis includes biliary tract stones even without a gallbladder, hypercalcemia, hypertriglyceridemia, undocumented alcohol use, trauma, scorpion stings, autoimmune IGG4 related as well as numerous drugs. Pt. remains NPO / clear liquids x 3 D. PMHx:Dyslipidemia, sleep apnea, type 2 diabetes, central retinal vein occlusion, urge incontinence, renal insufficiency GERD, insomnia, HTN, sarcoidosis, recurrent pancreatitis status post cholecystectomy, bipolar disorder, MRSA, necrotizing fasciitis. DIET:NPO / clear liquids x 3 D. LABS: Reviewed. K+ 3.3, BUN 36, Cr 1.57, Glu 229, A1c 8.5. MEDICATIONS: Reviewed. NUTRITION FOCUSED PHYSICAL ASSESSMENT: GI symptoms / stool: No BM reported.Bob: 19. Skin Integrity: Wound care and dressing change at right ring finger, slightly less necrotic tissue in the wound, edges remain unapproximated. Swelling and erythema seem less at the ring finger tip. Patient still adamantly refuses to allow Winding Rack Operator to visualize her scalp wound. Plastic surgery has not been consulted on for this finger wound, although it was recommended by Winding Rack Operator.. ANTHROPOMETRICS: Current Wt: 106.8 kgBMI: 38.0 kg/m2.Admit weight: 110.0 kg IBW: 59.1 kg (186.2% IBW). ESTIMATED NEEDS (CLASS II OBESITY, WOUNDS): Calories: 1477 - 1773 kcal (25 - 30 kcal / kg IBW) Protein: 106 - 118 g protein (1.8 - 2.0 g / kg IBW) NUTRITION DIAGNOSIS: 1)Increased nutrient needs related to wounds, as evidenced by request for plastic surgery consult by Winding Rack Operator. 2)Altered nutrition-related labs related to uncontrolled diabetes, as evidenced by A1c 8.5. INTERVENTION: 1) Will add supplements to trays. 2) Will offer diabetes education with referral to outpatient program. MONITOR/EVALUATE: Diet advance / tolerance, PO intake, labs, GI/nutrition status. Follow up per moderate nutrition risk guidelines.
[2017-01-09 13:59] VITALS: BP 133/82; PULSE 87; RESP 20; O2SAT 96
[2017-01-09 17:17] VITALS: BP 119/72; PULSE 84; RESP 20; O2SAT 98
[2017-01-10 00:23] VITALS: BP 148/90; PULSE 80; RESP 20; O2SAT 97
[2017-01-10] MEDS: Ampicillin-Sulbactam Inj 1,500 MG in 0.9% Sodium Chloride 50 ML IV SCH ×4 (01:06→18:29)
[2017-01-10 05:00] VITALS: BP 136/86; PULSE 90; RESP 20; O2SAT 98
[2017-01-10] MEDS: fentaNYL-PF 50 mCg/mL 2 mL Inj IV PRN (05:05)
[2017-01-10] MEDS: 0.9% Sodium Chloride 1,000 ML IV SCH ×3 (05:05→17:27)
--- NOTE | 2017-01-10 07:24 | NUR ---
NOC activity Pt reports of pain on her right side of the abdomen 02/25. Administered fentanyl PRN IV. Medication effective upon reassessment. Denies chest pain, sob, n.v. Encouraged po intake as tolerated. HS meds administered as scheduled. VSS and has been afebrile overnight.
[2017-01-10] MEDS: Insulin LISPRO 300 Unit/3 mL Inj SUBQ SCH ×4 (08:13→21:08)
[2017-01-10] MEDS: Pantoprazole 40 mg ER24 Tablet PO SCH ×2 (08:13→16:35)
[2017-01-10 10:37] VITALS: BP 148/88; PULSE 86; RESP 16; O2SAT 97
--- NOTE | 2017-01-10 12:26 | NUR ---
Pain: Patient complaining of abdominal pain 8/10 on pain scale. Pain medication changed to PO Dilaudid. Dilaudid administered. On reassessment, patient states pain has decreased "very little". Offered patient a choice of hot pack or heating pad. Patient opted for hot pack. Provided hot pack for abdomen. On reassessment, patient states heat is helping and pain is decreased to 6/10 on pain scale. Will continue to follow.
--- NOTE | 2017-01-10 14:15 | PCM.PNMED ---
Subjective Date of Service Jan 10, 2017 Subjective She is seen today to follow-up her pyelonephritis, pancreatitis, sarcoidosis skin lesion and the infected animal bite finger wound. She has been very secretive about a gauze dressing on the top of her head, not allowing anyone to look underneath it. When I initially asked her about it she declines to discuss it but with my insistence she states that many years ago she had a sarcoidosis outbreak that involved the entire top of her scalp and has slowly over the years shrunk to this current level. 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 She is not currently under any treatment with any particular unit reactor operator for that condition. Also looked at her finger. She explains that a dog bit this significant portion out of her right ring finger but that the swelling and the discharge/redness have improved considerably. Exam Vital Signs Vital Sign - Last Date Time Temp Pulse Resp B/P Pulse Ox O2 Delivery O2 Flow Rate FiO2 01/10/17 10:37 36.9 86 16 148/88 97 Room Air Intake and Output 01/09/17 01/09/17 01/10/17 Cumulative From/Thru 15:00 23:00 07:00 01/06/17 18:12 - 01/10/17 06:45 Intake Total 1941 ml 1885 ml 32901 ml Output Total 1800 ml 1000 ml 8805 ml Balance 141 ml 885 ml 2628 ml Intake Oral 750 ml 625 ml 2767 ml IV Total 1191 ml 1260 ml 8666 ml Output Urine Total 1800 ml 1000 ml 8505 ml Emesis 300 ml # Bowel Movements 2 2 Exam On exam she is lying in bed, internally preoccupied, giving the impression of being irritated at my interruption to her morning. Her daughter is sleeping in the other bed and appears to be somewhat passive about everything. Heart is regular rate and rhythm without murmur Lungs are clear to auscultation bilaterally Extremities have no ankle edema Abdomen is soft, bowel sounds positive, no organomegaly, mild right flank tenderness, no other tenderness. The right hand ring finger has a significant missing piece on the ventral aspect between the PIP and DIP joints. There is some granulation tissue and residual swelling of the finger but no discharge. On the vertex of her scalp is a 4 x 4 gauze covering an apparent chronic ulceration that she did not wish me to examine. IVs and Medications Medications Reviewed: Medications were reviewed in detail Lab and Diagnostics Result Diagram: 01/09/17 0440 01/10/17 0600 Assessment & Plan Patient is a 46-year-old female with past medical history remarkable for recurrent pancreatitis post cholecystectomy and without history of alcohol use, sarcoidosis, and MRSA scalp infection and necrotizing fasciitis abdominal infection who presented with 1 day of abdominal pain with nausea vomiting and diarrhea. # Acute pancreatitis - The patient had a lipase of 1007 on admission, which has subsequently dropped. - Differential diagnosis for recurrent pancreatitis includes biliary tract stones even without a gallbladder, hypercalcemia, hypertriglyceridemia, undocumented alcohol use, trauma, scorpion stings, autoimmune IGG4 related as well as numerous drugs - The patient denies any trauma or scorpion sting, alcohol use, no new drugs, the patient's triglycerides are elevated but only to 282 making this an unlikely cause, and the patient had her gallbladder removed in 2013 making stone less likely - Diet is being steadily advanced and she seems to be tolerating that. - We will be changing from IV fentanyl over to oral oxycodone for pain today. - Pantoprazole now by mouth - Ondansetron IV, with Phenergan added given refractory nausea and vomiting -The fact that her complaint today is only of right flank pain prompts a review of her potential pyelonephritis workup. The CT showed findings that were nonspecific for pyelonephritis but were nevertheless consistent with pyelonephritis. The urinalysis and urine culture were abnormal but there was no definitive single bacterial result on the urine culture. The white count has been normal and there has been no fever. She is on IV Unasyn.. The CT was quite definitive about the presence of pancreatitis. # Infected dog bite on left upper extremity fourth digit -Completing IV Unasyn treatment. - Patient will likely need antibiotic coverage for 7-14 days, plan to transition to oral antibiotic when tolerating. - We discussed potential plastic surgery referral, which may be more pertinent as the infection resolves leaving the actual residual defect more clearly delineated. This will be reevaluated before discharge. # Hypercalcemia - Reportedly secondary to chronic sarcoidosis - PTH and vitamin D ordered; Low vit D noted - Start Vit D supplement - Consider FU level in ~1 week to monitor progress. - Continue to trend calcium levels, now normalized.. # Likely urinary tract infection/right pyelonephritis - Patient denied symptoms of urinary tract infection - UA indicates patient has elevated white blood cell count, moderate bacteria, leukocyte esterase and nitrites - Unasyn for concomitant dog bite infection will cover any UTI - Urine culture showing growth of more than 3 organisms # Acute kidney injury - Creatinine of 2.3 for significantly elevated from baseline in the low ones, now down to 1.57. - Likely due to prerenal azotemia given nausea and vomiting as well BUN to creatinine ratio greater than 20 - Patient was given significant fluid resuscitation in the emergency department with 3 L normal saline # Diabetes mellitus type II Insulin-dependent - Hemoglobin A1c ordered, 8.5 supports poor control. - Patient is currently resuming oral intake and insulin doses are being adjusted. # Obesity - Patient education prior to discharge # Hypokalemia - Did not tolerate IV infusion. Level up to 3.6 after 40 mEq given yesterday. Recheck tomorrow. # Scalp sarcoidosis - This area needs to be reexamined and documented but the patient has not been allowing that. - Despite the apparent chronicity there is always a chance that occult skin neoplasm is present. GI Prophylaxis: Proton Pump Inhibitor VTE Prophylaxis: Sub-Q Heparin (Unfractionated) VTE Mechanical Devices: Intermittant Pneumatic CD Resuscitation Status: CPR: Attempt Resuscitation Oziel Dumont MD Jan 10, 2017 14:15
[2017-01-10 14:24] VITALS: BP 138/89; PULSE 84; RESP 16; O2SAT 95
[2017-01-10 18:26] VITALS: BP 150/79; PULSE 98; RESP 16; O2SAT 97
[2017-01-10 20:02] VITALS: BP 143/91; PULSE 92; RESP 16; O2SAT 99
[2017-01-10] MEDS: Insulin GLARgine 100 Unit/mL Syringe SUBQ SCH (21:07)
[2017-01-11] MEDS: 0.9% Sodium Chloride 1,000 ML IV SCH ×3 (00:15→16:20)
[2017-01-11] MEDS: Ampicillin-Sulbactam Inj 1,500 MG in 0.9% Sodium Chloride 50 ML IV SCH ×4 (00:20→18:12)
[2017-01-11 04:22] VITALS: BP 130/83; PULSE 92; RESP 16; O2SAT 95
--- NOTE | 2017-01-11 05:34 | NUR ---
Kpad Reduced Pain Shower at HS, IV and dressing on R hand kept dry and intact. Heat is very efficient at managing flank pain. 4x4 to scalp CDI, pt manages and cares for this with her daughters help. NS infusing at 100. No SOB, on RA. Care continues
[2017-01-11] MEDS: Pantoprazole 20 mg ER24 Tablet PO SCH (05:54)
[2017-01-11 06:52] LABS: Mean Corpuscular Hemoglobin 26.7 pg (27.0-35.0); Mean Corpuscular Volume 81.3 fL (81-100)
[2017-01-11] MEDS: Tolterodine ER 4 mg ER24 Capsule PO SCH (07:50)
[2017-01-11] MEDS: Pantoprazole 40 mg ER24 Tablet PO SCH (07:51)
[2017-01-11] MEDS: Insulin GLARgine 100 Unit/mL Syringe SUBQ SCH ×2 (07:51→21:59)
[2017-01-11] MEDS: Insulin LISPRO 300 Unit/3 mL Inj SUBQ SCH ×4 (07:52→22:00)
[2017-01-11] MEDS ORDERED: Polyethylene Glycol (PEG) 17 Gm Powder PO PRN (09:00)
[2017-01-11] MEDS ORDERED: Senna-Docusate 8.6-50 mg Tablet PO PRN (09:00)
--- NOTE | 2017-01-11 12:18 | NUR ---
Social Work-readiness for discharge: Data:EMR Reviewed. Pt is on day 5 of hospitalization for acute pancreatic per H&P. Pt is not medically stable anticipate tomorrow. Pt resides at home and has been up independent in her room. Pt to discharge on oral abx. No anticipated discharge needs. SW will continue to follow if needs arise. Assessment:Pt who is independent at baseline. Plan:Pt to discharge home when medically stable via POV. No anticipated discharge needs. SW will continue to follow if needs arise. MANJU Mckeon
[2017-01-11 14:13] VITALS: BP 135/86; PULSE 93; RESP 16; O2SAT 96
--- NOTE | 2017-01-11 16:35 | NUR ---
Wound Note patient sen at bedside for wound care and dressing change of right ring finger dog bite wound. Wound continues to clean up now 50% granulation tissue and 50% fibrin, erythema and swelling are resolved.Cleaned wound with saline and gauze, redressed with hydrogel and mepilex foam dressing. Offered outpatient follow up in the wound center but patient declines at this time, will call and schedule if she feels like healing at her finger is stalled.
--- NOTE | 2017-01-11 18:06 | NUR ---
Pain: Patient reporting abdominal pain level at a tolerable 3-4/10 on pain scale. Denies the need for pain medication. K-Pad used as needed to help reduce abdominal discomfort. Tolerating soft diet, denies nausea or increase in abdominal pain after meals.
[2017-01-11 20:43] VITALS: BP 127/82; PULSE 94; RESP 16; O2SAT 99
--- NOTE | 2017-01-11 22:29 | PCM.PNMED ---
Subjective Date of Service Jan 11, 2017 Subjective 46 F with sarcoidosis, acute on chronic pancreatitis. She is seen today to follow-up her pyelonephritis, pancreatitis, sarcoidosis skin lesion and the infected animal bite finger wound. Patient states that her nausea, appetite and pain have improved much. There are function has improved. She is ambulating in the hallways. Requesting something for constipation. She states that her right finger dog bite is actually much improved now she feels that his it is healing but good Exam Vital Signs Vital Sign - Last Date Time Temp Pulse Resp B/P Pulse Ox O2 Delivery O2 Flow Rate FiO2 01/11/17 04:22 36.8 92 16 130/83 95 Room Air Intake and Output 01/10/17 01/10/17 01/11/17 Cumulative From/Thru 15:00 23:00 07:00 01/06/17 18:12 - 01/10/17 18:46 Intake Total 720 ml 18951 ml Output Total 1000 ml 9805 ml Balance -280 ml 2348 ml Intake Oral 720 ml 3487 ml IV Total 8666 ml Output Urine Total 1000 ml 9505 ml Emesis 300 ml # Bowel Movements 0 2 Exam General: Alert, Oriented X3, Cooperative, Alopecia, Looks stated age Eyes: PERRLA, Scleral Anicteric Mouth: Mouth Normal, Mucous Membranes dry Neck: Supple, no Thyromegaly, trachea central. Chest & Lungs: Clear to auscultation & percussion, No adventitious breath sounds, no crackles, no wheeze Cardiovascular: Normal S1, Normal S2, No Murmurs/Rubs/Gallops, normalRhythm, No JVD, slightly tachycardic Abdomen: Soft, Non-tender, Non-distended, Normoactive bowel tones. Skin: Warm and dry, Scalp covered it with a large patch, patient does not seem to be in a very good mood and she has a history of not wanting to show the scalp skin for deferred exam, deep nonpruritic w/o bone exposure on the palmar side of the finger tip of the left hand fourth finger Neurological: Grossly neurologically intact, Normal Speech, Sensation Intact extremities trace swelling is present Lungs clear to auscultation no crackles or wheezes skin IVs and Medications IV Fluids None Medications Reviewed: Medications were reviewed in detail Lab and Diagnostics Laboratory Tests Test 01/11/17 06:09 White Blood Count 6.9th/mm3 (3.8-10.1) Red Blood Count 4.75mil/mm3 (3.90-5.20) Hemoglobin 12.7g/dL (12.0-15.6) Hematocrit 38.6% (35.0-46.0) Mean Corpuscular Volume 81.3fL (81-100) Mean Corpuscular Hemoglobin 26.7pg (27.0-35.0) Mean Corpuscular Hemoglobin Concent 32.9% (32.0-37.0) Red Cell Distribution Width 13.5% (12.3-15.4) Platelet Count 232bil/L (150-400) Sodium Level 139mEq/L (134-144) Potassium Level 3.4mEq/L (3.5-5.2) Chloride Level 102mEq/L (97-108) Carbon Dioxide Level 20mmol/L (18-29) Blood Urea Nitrogen 27mg/dL (6-24) Creatinine 1.43mg/dL (0.57-1.00) Estimat Glomerular Filtration Rate 56mL/min (>59) Glucose Level 207mg/dL (60-99) Calcium Level 8.8mg/dL (8.5-10.1) Total Bilirubin 0.3mg/dL (0.0-1.2) Aspartate Amino Transf (AST/SGOT) 18U/L (0-50) Alanine Aminotransferase (ALT/SGPT) 11U/L (0-32) Alkaline Phosphatase 120U/L (25-150) Total Protein 7.0g/dL (6.4-8.4) Albumin 3.2g/dL (3.4-5.0) Lipase 92U/L (13-60) Microbiology 01/06/17 Urine Culture - Final, Complete Bacterial Contamination Result Diagram: 01/09/17 0440 01/10/17 0600 Assessment & Plan Patient is a 46-year-old female with past medical history remarkable for recurrent pancreatitis post cholecystectomy and without history of alcohol use, sarcoidosis, and MRSA scalp infection and necrotizing fasciitis abdominal infection who presented with 1 day of abdominal pain with nausea vomiting and diarrhea. # Constipation,a cute active MiraLAX and Senokots are ordered # Acute on chronic pancreatitis, POA improving - The patient had a lipase of 1007 on admission, which has subsequently dropped. - Differential diagnosis for recurrent pancreatitis includes biliary tract stones even without a gallbladder, hypercalcemia, hypertriglyceridemia, undocumented alcohol use, trauma, scorpion stings, autoimmune IGG4 related as well as numerous drugs - The patient denies any trauma or scorpion sting, alcohol use, no new drugs, the patient's triglycerides are elevated but only to 282 making this an unlikely cause, and the patient had her gallbladder removed in 2013 making stone less likely - Diet is being steadily advanced and she seems to be tolerating that. - Pantoprazole now by mouth - Ondansetron IV, with Phenergan added given refractory nausea and vomiting -The fact that her complaint today is only of right flank pain prompts a review of her potential pyelonephritis workup. The CT showed findings that were nonspecific for pyelonephritis but were nevertheless consistent with pyelonephritis. The urinalysis and urine culture were abnormal but there was no definitive single bacterial result on the urine culture. The white count has been normal and there has been no fever. She is on IV Unasyn.. The CT was quite definitive about the presence of pancreatitis. --lipase is 92 much improved nausea vomiting improved on 01/11 --Discontinue Dilaudid and fentanyl for pain. Started her on morphine IV and vicodin PO # Infected dog bite on left upper extremity fourth digit, POAa ctive -Completing IV Unasyn treatment. - Patient will likely need antibiotic coverage for 7-14 days, plan to transition to oral antibiotic when tolerating. - We discussed potential plastic surgery referral, which may be more pertinent as the infection resolves leaving the actual residual defect more clearly delineated. This will be reevaluated before discharge. # Hypercalcemia POA active - Reportedly secondary to chronic sarcoidosis - PTH and vitamin D ordered; Low vit D noted - Start Vit D supplement - Consider FU level in ~1 week to monitor progress. - Continue to trend calcium levels, now normalized.. # Likely urinary tract infection/right pyelonephritis, POA active - Patient denied symptoms of urinary tract infection - UA indicates patient has elevated white blood cell count, moderate bacteria, leukocyte esterase and nitrites - Unasyn for concomitant dog bite infection will cover any UTI - Urine culture showing growth of more than 3 organisms # Acute kidney injury, POA resolved - Creatinine of 2.3 for significantly elevated from baseline in the low ones, now down to 1.57. - Likely due to prerenal azotemia given nausea and vomiting as well BUN to creatinine ratio greater than 20 - Patient was given significant fluid resuscitation in the emergency department with 3 L normal saline --At her baseline today 01/11 # Diabetes mellitus type II Insulin-dependent chronic active - Hemoglobin A1c ordered, 8.5 supports poor control. - Patient is currently resuming oral intake and insulin doses are being adjusted. -Added 3 units at mealtime insulin based on her requirements in the last 24 hours - # Obesity, chronic active - Patient education prior to discharge can be considered but patient's general behavior does not appear to be receptive to such suggestions. # Hypokalemia, acute resolved - Did not tolerate IV infusion. Level up to 3.6 after 40 mEq given -- Cont to monitor # Scalp sarcoidosis, chronic active - This area needs to be reexamined and documented but the patient has not been allowing that. - Despite the apparent chronicity there is always a chance that occult skin neoplasm is present. Pain Evaluation: Adequate Pain Control GI Prophylaxis: Proton Pump Inhibitor VTE Prophylaxis: Sub-Q Heparin (Unfractionated) VTE Mechanical Devices: Intermittant Pneumatic CD Resuscitation Status: CPR: Attempt Resuscitation Time spent 25 min Kate Wood DO Jan 11, 2017 05:28
[2017-01-12] MEDS: Ampicillin-Sulbactam Inj 1,500 MG in 0.9% Sodium Chloride 50 ML IV SCH ×2 (00:23→06:32)
--- NOTE | 2017-01-12 05:02 | NUR ---
Activity Pt alert and oriented x 3 denies n/v/d and abd pain. Kpad on abd. Pt showered independently this shift and no issues reported or observed. Steady on feet wearing non slip socks. VSS. Care continues.
[2017-01-12] MEDS ORDERED: INSLIS SUBQ (05:57)
[2017-01-12] MEDS ORDERED: INSU100V7 SUBQ (05:57)
[2017-01-12] MEDS: Pantoprazole 20 mg ER24 Tablet PO SCH (06:32)
[2017-01-12 06:38] VITALS: BP 106/74; PULSE 85; RESP 16; O2SAT 93
[2017-01-12] MEDS: Insulin LISPRO 300 Unit/3 mL Inj SUBQ SCH (08:09)
[2017-01-12] MEDS: Tolterodine ER 4 mg ER24 Capsule PO SCH (08:10)
[2017-01-12] MEDS: Insulin GLARgine 100 Unit/mL Syringe SUBQ SCH (08:11)
[2017-01-12] MEDS ORDERED: AMOX-366 PO (11:08)
[2017-01-12] MEDS ORDERED: LACT1CAP26 PO (11:09)
--- NOTE | 2017-01-12 11:50 | PCM.DIMED ---
Discharge Instructions Date of Service Jan 12, 2017 Dates of Hospitalization Jan 06, 2017 at 20:55 Discharge Diagnosis Discharge Diagnosis Acute on Chronic Pancreatitis, Sarcoidosis, Hypercalcemia, Vit D def, DM II, Dog Bite, Pyelonephritis Diet Discharge Diet: Heart Healthy, Diabetic Activity Discharge Activity: No restrictions Call your provider Call your provider for: Fever or Chills, Shortness of breath, Bleeding, Chest pain, Vomitting, Excessive diarrhea, Weakness (unilateral), Other Patient Instructions Patient Instructions Please keep the wound dry and clean. Please follow a low fat diabetic diet. Your insulin was decreased based on your usage here. Please discuss with PCP at f/u Please continue vit D supplementation Follow-up plan F./U with PCP in one week F/U with wound care in 3-4 days F/U with Dr. Figueroa as o/p if wound does not heel in the future in 2-3 weeks Kate Wood DO Jan 12, 2017 11:50
[2017-01-12] MEDS ORDERED: CHOL100043 PO (11:52)
--- NOTE | 2017-01-12 12:40 | NUR ---
Discharge Went over dc instructions and medications with pt and family who verbally acknowledged understanding. Removed IV. Pt left on ft with no s/s of distress.
--- NOTE | 2017-01-12 14:26 | NUR ---
Social Work-discharge: Data:EMR Reviewed. Pt is on day 6 of hospitalization for acute pancreatitis per H&P. Pt is medically stable for discharge. Pt resides at home and will return home on PO abx. No discharge needs identified. All updated and agreeable to plan. Assessment:pt who is independent at baseline. Plan:Pt to discharge home today via POV. No discharge needs identified. All updated and agreeable to plan. MANJU Mckeon
[2017-01-12] MEDS ORDERED: Amoxicillin-Clav 875-125 mg Tablet PO SCH (20:30)
== END 2017-01-12 12:40 | disposition home or self-care (01) | DRG 439 ==
LOC: SED 18:07 → MPC 20:55
PROVIDERS: ADMIT Family Medicine; ATTEND Hospitalist
PROC: 0HDGXZZ Extraction of Left Hand Skin, External Approach (ICD-10-PCS; principal; 2017-01-08)
DX: K85.90 Acute pancreatitis without necrosis or infection, unspecified (principal); N17.9 Acute kidney failure, unspecified; N39.0 Urinary tract infection, site not specified; D86.3 Sarcoidosis of skin; E83.52 Hypercalcemia; E11.9 Type 2 diabetes mellitus without complications; I10 Essential (primary) hypertension; E78.5 Hyperlipidemia, unspecified; K21.9 Gastro-esophageal reflux disease without esophagitis; E86.0 Dehydration; E87.6 Hypokalemia; E66.9 Obesity, unspecified; Z68.38 Body mass index [BMI] 38.0-38.9, adult; Z87.891 Personal history of nicotine dependence; W54.0XXD Bitten by dog, subsequent encounter; S61.255D Open bite of left ring finger without damage to nail, subsequent encounter; Z90.49 Acquired absence of other specified parts of digestive tract; Z79.4 Long term (current) use of insulin; Z79.82 Long term (current) use of aspirin